=== PATIENT | male | born 1960 | race Caucasian/White ===

== ENCOUNTER → 2021-02-14 12:54 | Outpatient (BNVA) | payer BC, SELFPAY | PROVIDERS: Visit Provider Family Medicine | DX: I10 Essential (primary) hypertension (principal); J30.2 Other seasonal allergic rhinitis; K21.9 Gastro-esophageal reflux disease without esophagitis; Z12.5 Encounter for screening for malignant neoplasm of prostate | CPT/HCPCS: 80053; 80061; 84443; G0103 ==

== ENCOUNTER 2021-09-10 13:32 | Outpatient (CLI) | payer BC, SELFPAY ==
[2021-09-10 14:01] VITALS: BP 138/87; PULSE 65; RESP 17; TEMP 36.3; O2SAT 98; BMI 33.9
[2021-09-10 15:36] VITALS: BP 152/81; PULSE 55; RESP 17; TEMP 36.1; O2SAT 99
[2021-09-10 15:53] VITALS: BP 148/82; PULSE 53; RESP 17; TEMP 36.1; O2SAT 99
[2021-09-10 16:01] VITALS: PULSE 53; RESP 17; TEMP 36.4; O2SAT 99
== END 2021-09-10 13:33 | disposition home or self-care (01) ==
LOC: OPS 13:33
PROVIDERS: Visit Provider Nurse Practitioner Family
DX: U07.1 COVID-19 (principal)
CPT/HCPCS: 96365

== ENCOUNTER → 2021-09-27 12:23 | Outpatient (BNVA) | payer BC, SELFPAY | PROVIDERS: Visit Provider Nurse Practitioner Family | DX: E78.00 Pure hypercholesterolemia, unspecified (principal); I10 Essential (primary) hypertension; K21.9 Gastro-esophageal reflux disease without esophagitis | CPT/HCPCS: 80053; 80061 ==